=== PATIENT | female | born 1965 | race Caucasian/White ===

== ENCOUNTER 2018-06-30 13:13 | Emergency (ER) | payer OTHER ==
[2018-06-30] MEDS: METHYLPRED. NA SUCC 500 MG in DEXTROSE 5% 50 ML IVPB (14:03)
[2018-06-30] MEDS: morphine LIQ (10 MG/5 ML) CUP PO (14:03)
== END 2018-06-30 14:45 | disposition home or self-care (01) ==
LOC: FTE 13:13
DX: M06.9 Rheumatoid arthritis, unspecified (principal); E03.9 Hypothyroidism, unspecified
CPT/HCPCS: 96374; 99284-25